=== PATIENT | female | born 1970 | race Caucasian/White ===

== ENCOUNTER 2018-05-28 14:53 | Outpatient (CLI) | payer OTHER | END 2018-05-28 14:54 | disposition home or self-care (01) | LOC: DI 14:53 | PROVIDERS: ATTEND Internal Medicine | DX: Z12.31 Encounter for screening mammogram for malignant neoplasm of breast (principal) | CPT/HCPCS: 77067 ==

== ENCOUNTER 2019-06-18 10:11 | Outpatient (CLI) | payer OTHER ==
--- NOTE | 2019-06-18 17:08 | Mammography Report ---
Reason: ROUTINE MAMMO Procedure Date: 06/18/2019 Accession Number: [id number] / [id number] Procedure: [facility] - Screening Mammo Dig Bilat CPT Code: Final Report FULL RESULT: EXAM: Screening Mammo Dig Bilat DATE: 06/18/2019 10:35 AM CLINICAL HISTORY: Routine screening TECHNIQUE: (B) - Bilateral CC and MLO views were obtained. COMPARISON: 05/28/2018 and 02/23/2015 PARENCHYMAL PATTERN: (VD) - The breasts demonstrate extremely dense parenchyma bilaterally, limiting the sensitivity of mammography. FINDINGS: Right breast: There are no suspicious masses, calcifications, or areas of distortion. Left breast: Possible developing area of architectural distortion seen best on the CC projection retroareolar region 7 to 8 cm from the nipple. A few scattered calcifications are also present. IMPRESSION: Incomplete examination. BI-RADS category 0. Needs additional evaluation left breast RECOMMENDATION: (ADDMAM) - Recommend additional mammographic views. Left breast : spot compression, true lateral, and repeat CC and MLO projections with tomography. BI-RADS CATEGORY: 0: Needs additional evaluation STANDARD QUALIFYING STATEMENTS: 1. This examination was not reviewed with the aid of Computer-Aided Detection (CAD). 2. A negative or benign imaging report should not preclude biopsy if clinically suspicious findings are present. 3. Dense breasts may obscure an underlying neoplasm. 4. This examination was reviewed without the aid of 3D breast imaging (tomosynthesis).
== END 2019-06-18 10:12 | disposition home or self-care (01) ==
LOC: DI.N 10:11
PROVIDERS: ATTEND Internal Medicine
DX: Z12.31 Encounter for screening mammogram for malignant neoplasm of breast (principal); R92.8 Other abnormal and inconclusive findings on diagnostic imaging of breast; R92.1 Mammographic calcification found on diagnostic imaging of breast
CPT/HCPCS: 77067

== ENCOUNTER 2019-09-20 14:02 | Outpatient (CLI) | payer OTHER ==
--- NOTE | 2019-09-20 16:05 | Mammography Report ---
Reason: ABNORMAL MAMMOGRAM Procedure Date: 09/20/2019 Accession Number: [id number] / [id number] Procedure: [facility] - Diag Special Views Dig LT CPT Code: Final Report FULL RESULT: EXAM: Diag Special Views Dig LT, Breast Unilateral Limited DATE: 09/20/2019 3:31 PM CLINICAL HISTORY: Follow-up abnormal mammogram 06/18/2019 TECHNIQUE: (L) - Left CC and MLO views were obtained. COMPARISON: 06/18/2019, 05/28/2018 and 02/23/2015 MAMMOGRAM: PARENCHYMAL PATTERN: The breast tissue is extremely dense. FINDINGS: The density described in the 12:00 position left breast on the prior mammogram report attenuates on additional views. LEFT BREAST ULTRASOUND: TECHNIQUE: Real time scanning by the transit clerk with saved static images reviewed. FINDINGS: The left breast is scanned in the 12:00 position 6 cm from the nipple. Dense breast parenchyma is present. No cystic or solid mass or abnormal fluid collection is seen. IMPRESSION: Probably Benign. BI-RADS category 3. Left breast RECOMMENDATION: (6MOS) - Recommend 6 month follow-up exam. Left breast mammogram BI-RADS CATEGORY: (3) - Probably Benign. STANDARD QUALIFYING STATEMENTS: 1. This examination was not reviewed with the aid of Computer-Aided Detection (CAD). 2. A negative or benign imaging report should not preclude biopsy if clinically suspicious findings are present. 3. Dense breasts may obscure an underlying neoplasm. 4. This examination was reviewed with the aid of 3D breast imaging (tomosynthesis).
== END 2019-09-20 14:03 | disposition home or self-care (01) ==
LOC: DI 14:02
PROVIDERS: ATTEND Internal Medicine
DX: R92.2 Inconclusive mammogram (principal)
CPT/HCPCS: 76642

== ENCOUNTER 2020-06-15 12:35 | Outpatient (CLI) | payer OTHER ==
--- NOTE | 2020-06-22 11:58 | Mammography Report ---
BILATERAL DIGITAL DIAGNOSTIC MAMMOGRAM 3D/2D: 06/15/2020 CLINICAL: Patient returns today to evaluate an architectural distortion in the left breast. Comparison is made to exams dated: 09/20/2019 ultrasound, 09/20/2019 mammogram, 06/18/2019 mammogram, and 05/28/2018 mammogram - [facility]. The tissue of both breasts is extremely dense, which lowers the sensitivity of mammography. The previously seen focal asymmetry in the left breast is not redemonstrated on the current exam. Thi s abnormality was previously not seen sonographically. No significant masses, calcifications, or other findings are seen in either breast. IMPRESSION: NEGATIVE There is no mammographic evidence of malignancy. A 1 year screening mammogram is recommended. This exam was interpreted at Station ID: [id number]. NOTE: For mammograms, a report in lay terms will be sent to the patient. Approximately 15% of breast malignancies will not be visualized mammographically. In the management of a palpable breast mass, a negative mammogram must not discourage biopsy of a clinically suspicious lesion. Electronically Signed By: Curtis pressley/lauren:06/15/2020 14:27:54 ACR BI-RADS Category 1: Negative 3341F PARENCHYMAL PATTERN: (VD) - The breast(s) demonstrate(s) extremely dense parenchyma, limiting the sen sitivity of mammography. BI-RADS CATEGORY: (1) - 1 RECOMMENDATION: (ANNUAL) - Recommend routine annual screening mammography. [id number] 1 year screening LATERALITY: (B)
== END 2020-06-15 12:36 | disposition home or self-care (01) ==
LOC: DI 12:35
PROVIDERS: ATTEND Internal Medicine
DX: Z12.39 Encounter for other screening for malignant neoplasm of breast (principal)
CPT/HCPCS: 77066

== ENCOUNTER 2022-10-29 14:42 | Outpatient (CLI) | payer OTHER ==
--- NOTE | 2022-10-31 10:22 | Mammography Report ---
BILATERAL DIGITAL SCREENING MAMMOGRAM 3D/2D: 10/29/2022 CLINICAL: Routine screening. Comparison is made to exams dated: 06/15/2020 mammogram, 09/20/2019 mammogram, 06/18/2019 mammogram, an d 05/28/2018 mammogram - [facility]. Both breasts are extremely dense, which lowers the sensitivity of mammography (category d />75% gland ular tissue). No significant masses, calcifications, or other findings are seen in either breast. There has been no significant interval change. IMPRESSION: NEGATIVE There is no mammographic evidence of malignancy. A 1 year screening mammogram is recommended. Based on the Tyrer Cuzick model (a risk assessment model) the patients lifetime risk is 13.4% and he r 10 year risk is 3.9%. According to the ACR, ACS, and NCCN guidelines, an annual breast MRI exam re ng with mammogram is recommended if the patients lifetime risk is 20% or greater. This exam was interpreted at Station ID: [id number]. NOTE: For mammograms, a report in lay terms will be sent to the patient. Approximately 15% of breast malignancies will not be visualized mammographically. In the management of a palpable breast mass, a negative mammogram must not discourage biopsy of a clinically suspicious lesion. Electronically Signed By: Gabe campbell/lauren:10/30/2022 10:34:47 letter sent: No_Letter ACR BI-RADS Category 1: Negative 3341F PARENCHYMAL PATTERN: (VD) - The breast(s) demonstrate(s) extremely dense parenchyma, limiting the sen sitivity of mammography. BI-RADS CATEGORY: (1) - 1 Mammogram [id number] 1 year screening LATERALITY: (B)
== END 2022-10-29 14:43 | disposition home or self-care (01) ==
LOC: DI 14:42
PROVIDERS: ATTEND Registered Nurse
DX: Z12.31 Encounter for screening mammogram for malignant neoplasm of breast (principal)

== ENCOUNTER 2022-11-28 12:34 | Outpatient (CLI) | payer OTHER ==
--- NOTE | 2022-11-28 17:09 | MRI Report ---
PROCEDURE: SHOULDER WO - LT INDICATIONS: CHRONIC LEFT SHOULDER PAIN TECHNIQUE: Noncontrast oblique coronal T2 fast spin echo with fat saturation, oblique sagittal T1 spin echo and T2 fast spin echo with fat saturation, axial T1 spin echo and T2 fast spin echo with fat saturation t hrough the shoulder. COMPARISON: None. FINDINGS: Image quality: Excellent. Rotator cuff: The low-grade articular and bursal surface partial-thickness tear involving distal sup raspinatus at its insertion on humeral head is seen extending to musculotendinous junction. Distal in fraspinatus and subscapularis tendinosis is seen. No full-thickness rotator cuff tendon rupture. Very mild supraspinatus muscle atrophy is seen on sagittal images. Bones and bursae: No bone marrow contusions or fractures. There is mild to moderate acromioclavicula r joint osteoarthritis with joint space narrowing and downward osteophyte formation depressing on mus culotendinous junction of supraspinatus. Small amount of subacromial subdeltoid bursal fluid is seen. Capsule and soft tissues: Fraying of superior anterior labrum with subtle signal abnormality at 12 to 1:00 position is seen concerning for subtle superior anterior labral tear. The long head of the josiah ps tendon appears thickened. The rotator interval appears normal, without fibrosis. The coracohumer al ligament is normal in thickness. IMPRESSION: 1. Low-grade articular and bursal surface partial-thickness tear involving distal supraspinatus exten ding to musculotendinous junction. Distal infraspinatus and subscapularis tendinosis. Very mild supra spinatus muscle atrophy. 2. Mild to moderate acromioclavicular joint osteoarthritis. No fracture or dislocation. Small amount of subacromial subdeltoid bursal fluid. No gross loose bodies. 3. Finding is suggestive of subtle superior anterior labral tear at 12 to 1:00 position. 4. Proximal long head of biceps tendinosis. Reviewed by: Joe Cade MD on 11/28/2022 5:08 PM PDT Approved by: Joe Cade MD on 11/28/2022 5:08 PM PDT Station ID: [id number]
== END 2022-11-28 12:35 | disposition home or self-care (01) ==
LOC: DI 12:34
PROVIDERS: ATTEND Registered Nurse
DX: M75.112 Incomplete rotator cuff tear or rupture of left shoulder, not specified as traumatic (principal); M19.012 Primary osteoarthritis, left shoulder; M75.82 Other shoulder lesions, left shoulder; M62.512 Muscle wasting and atrophy, not elsewhere classified, left shoulder

== ENCOUNTER 2022-12-19 09:17 | Outpatient (CLI) | payer OTHER ==
--- NOTE | 2022-12-19 18:08 | CT Report ---
PROCEDURE: CT sinus without contrast INDICATIONS: CHRONIC RHINITIS TECHNIQUE: Noncontrast 3.0 mm axial images acquired from the frontal sinuses to the mid-sella, with coronal and sagittal reformats. For radiation dose reduction, the following was used: automated exposure control , adjustment of mA and/or kV according to patient size. COMPARISON: None. FINDINGS: Image quality: Excellent. Maxillary Sinuses: No bony remodeling or destruction. Sinuses are clear. Ethmoid Air Cells: No bony remodeling or destruction. Sinuses are clear. Sphenoid Sinuses: No bony remodeling or destruction. Sinuses are clear. Frontal Sinuses: No bony remodeling or destruction. Sinuses are clear. Ostiomeatal Complexes: Ostiomeatal complexes are patent. No Marimar cells. Miscellaneous: Visualized intra-orbital contents are normal. No harrison bullosa. No nasal septal deviation. IMPRESSION: Normal CT of the sinus Reviewed by: Horacio Limon MD on 12/19/2022 5:07 PM AKKARTHIK Approved by: Horacio Limon MD on 12/19/2022 5:07 PM AKDT Station ID: [id number]
== END 2022-12-19 09:18 | disposition home or self-care (01) ==
LOC: DI 09:17
PROVIDERS: ATTEND Registered Nurse
DX: J31.0 Chronic rhinitis (principal)

== ENCOUNTER 2023-01-27 15:31 | Outpatient (CLI) | payer OTHER | END 2023-01-27 15:32 | disposition home or self-care (01) | LOC: CAM 15:31 | PROVIDERS: ATTEND Registered Nurse | DX: G89.4 Chronic pain syndrome (principal) | CPT/HCPCS: 97810; 97811 ==

== ENCOUNTER 2023-11-20 14:20 | Outpatient (CLI) | payer OTHER ==
--- NOTE | 2023-11-21 11:34 | Mammography Report ---
BILATERAL DIGITAL SCREENING MAMMOGRAM 3D/2D: 11/20/2023 CLINICAL: Routine screening. Comparison is made to exams dated: 10/29/2022 mammogram, 06/15/2020 mammogram, 09/20/2019 ultrasound, mammogram, 06/18/2019 mammogram, and 05/28/2018 mammogram - [facility]. Both breasts are extremely dense, which lowers the sensitivity of mammography (category d />75% gland ular tissue). No significant masses, calcifications, or other findings are seen in either breast. There has been no significant interval change. IMPRESSION: NEGATIVE There is no mammographic evidence of malignancy. A 1 year screening mammogram is recommended. Based on the Tyrer Cuzick model (a risk assessment model) the patient's lifetime risk is 13.3% and he r 10 year risk is 4.1%. According to the ACR, ACS, and NCCN guidelines, an annual breast MRI exam re ng with mammogram is recommended if the patient's lifetime risk is 20% or greater. This exam was interpreted at Station ID: [id number]. NOTE: For mammograms, a report in lay terms will be sent to the patient. Approximately 15% of breast malignancies will not be visualized mammographically. In the management of a palpable breast mass, a negative mammogram must not discourage biopsy of a clinically suspicious lesion. Electronically Signed By: Gabe campbell/lauren:11/20/2023 15:07:33 letter sent: No_Letter ACR BI-RADS Category 1: Negative 3341F PARENCHYMAL PATTERN: (VD) - The breast(s) demonstrate(s) extremely dense parenchyma, limiting the sen sitivity of mammography. BI-RADS CATEGORY: (1) - 1 RECOMMENDATION: (ANNUAL) - Recommend routine annual screening mammography. [id number] 1 year screening LATERALITY: (B)
== END 2023-11-20 14:21 | disposition home or self-care (01) ==
LOC: DI.N 14:20
PROVIDERS: ATTEND Registered Nurse
DX: Z12.39 Encounter for other screening for malignant neoplasm of breast (principal); R92.343 Mammographic extreme density, bilateral breasts